=== PATIENT | female | born 1975 | race Two or more races ===

== ENCOUNTER 2016-06-24 04:48 | Emergency (ER) | payer MEDICAID ==
[~2016-06-24] VITALS: Ht 152.4 cm; Wt 69.4 kg
[2016-06-24 05:36] VITALS: BP 140/96
== END 2016-06-24 05:47 | disposition left against medical advice (07) ==
LOC: ER 04:58
DX: M54.2 Cervicalgia (principal); M54.9 Dorsalgia, unspecified; Z53.21 Procedure and treatment not carried out due to patient leaving prior to being seen by health care provider; W19.XXXA Unspecified fall, initial encounter; Y93.89 Activity, other specified; Y99.8 Other external cause status; Y92.89 Other specified places as the place of occurrence of the external cause